=== PATIENT | female | born 1980 | race American Indian/Alaskan Native ===

== ENCOUNTER 2018-11-15 15:44 | Emergency (ER) | payer OTHER ==
[2018-11-15 15:59] VITALS: BMI 23.1
[2018-11-15 16:03] VITALS: RESP 16
--- NOTE | 2018-11-15 16:11 | ED PDOC ---
Arrival/HPI - General Chief Complaint: Flu-like Symptoms Time Seen by Provider: 11/15/18 15:47 - History of Present Illness Narrative History of Present Illness (Text): 11/15/18 16:09 38 yo female, presnts with "flu like symptoms x 1day. subjective fever, sore throat, sneezing. got flu shot. Past Medical History - Infectious Disease Hx of Infectious Diseases: None - Psychiatric Hx Substance Use: No Family/Social History Family/Social History: Unknown Family HX Smoking Status: Never Smoked Hx Alcohol Use: No Hx Substance Use: No Allergies/Home Meds Allergies/Adverse Reactions: Allergies peanut Allergy (Verified 11/15/18 15:59) ANAPHYLAXIS shrimp Allergy (Verified 11/15/18 15:59) RASH Review of Systems - Review of Systems Constitutional: Normal Eyes: Normal ENT: Sore Throat, Rhinorrhea Respiratory: Normal Cardiovascular: Normal Gastrointestinal: Normal Genitourinary Female: Normal Musculoskeletal: Normal Skin: Normal Neurological: Normal Endocrine: Normal Hemo/Lymphatic: Normal Psychiatric: Normal Physical Exam Vital Signs Temp Pulse Resp BP Pulse Ox 11/15/18 15:59 98.4 F 64 16 138/88 99 Temperature: Afebrile Blood Pressure: Normal Pulse: Regular Respiratory Rate: Normal Appearance: Positive for: Well-Appearing, Non-Toxic, Comfortable Pain Distress: None Mental Status: Positive for: Alert and Oriented X 3 - Systems Exam Head: Present: Atraumatic, Normocephalic Pupils: Present: PERRL Extroacular Muscles: Present: EOMI Conjunctiva: Present: Normal Mouth: Present: Moist Mucous Membranes Pharnyx: Present: ERYTHEMA. No: EXUDATE Neck: Present: Normal Range of Motion Respiratory/Chest: Present: Clear to Auscultation, Good Air Exchange. No: Respiratory Distress, Accessory Muscle Use Cardiovascular: Present: Regular Rate and Rhythm, Normal S1, S2. No: Murmurs Abdomen: No: Tenderness, Distention, Peritoneal Signs, Rebound, Guarding Back: Present: Normal Inspection Upper Extremity: Present: Normal Inspection. No: Cyanosis, Edema Lower Extremity: Present: Normal Inspection. No: Edema Neurological: Present: GCS=15, CN II-XII Intact, Speech Normal Skin: Present: Warm, Dry, Normal Color. No: Rashes Psychiatric: Present: Alert, Oriented x 3, Normal Insight, Normal Concentration Medical Decision Making ED Course and Treatment: 11/15/18 18:24 vitals stable high clniical suspcion for influenza will treat. return precautions advsied. Disposition/Present on Arrival - Present on Arrival Any Indicators Present on Arrival: No History of DVT/PE: No History of Uncontrolled Diabetes: No Urinary Catheter: No History of Decub. Ulcer: No History Surgical Site Infection Following: None - Disposition Have Diagnosis and Disposition been Completed?: Yes Diagnosis: Influenza-like illness Disposition: HOME/ ROUTINE Disposition Time: 18:00 Condition: STABLE Discharge Instructions (ExitCare): Viral Syndrome (DC) Prescriptions: Oseltamivir Phosphate [Tamiflu] 75 mg PO BID #10 capsule Referrals: [facility] [Outside] - Follow up with primary [facility] [place] [Outside] - Follow up with primary Forms: [employer] (Bulgarian)
[2018-11-15 17:39] LABS: INFLUENZA A B NEGATIVE FOR FLU A/B (NEGATIVE)
[2018-11-15 18:02] VITALS: BP 113/77; PULSE 55; TEMP 98.1; O2SAT 100
== END 2018-11-15 18:02 | disposition home or self-care (01) ==
LOC: ED 15:44
DX: J11.1 Influenza due to unidentified influenza virus with other respiratory manifestations (principal)